=== PATIENT | female | born 1985 | race Caucasian/White ===

== ENCOUNTER → 2016-05-23 | Outpatient (CLI) | payer OTHER ==
[~2016-05-23] MED LIST: OXYC1TAB8 PO
--- NOTE | 2016-05-23 15:10 | DI ---
Indication: ITS.REASON: R10.2 PELVIC AND PERINEAL PAIN PROCEDURE: US PELVIC NON OB W/TRANS VAG: Encounter: Initial Comparison: Pelvic ultrasound dated January 12, 2015 FINDINGS: Transvaginal and transabdominal pelvic imaging was performed. The uterus is surgically absent. No mass or free fluid seen in the pelvis. Both ovaries are identified and normal in appearance. The right ovary measures 3.8 x 1.5 x 1.6 cm. The left ovary measures 3.3 x 2 x 2.2 cm. There are no abnormal adnexal masses detected. Normal Doppler flow seen to both ovaries. IMPRESSION: Post hysterectomy change, otherwise unremarkable pelvic sonogram. .
== END ==
LOC: IMA 13:56
PROVIDERS: ATTEND Family Medicine
DX: R10.2 Pelvic and perineal pain (principal); Z90.710 Acquired absence of both cervix and uterus